=== PATIENT | female | born 1960 | race Caucasian/White ===

== ENCOUNTER 2018-12-16 02:11 | Emergency (ER) | payer OTHER ==
[2018-12-16 02:59] LABS: Absolute Lymphocytes (CBC) 2.5 K/uL (0.7-4.9); Basophils % 0.9 % (0-1.3); Hematocrit 38.3 % (36.0-45.0); Lymphocytes % 41.8 % (15.3-44.8); MPV 9.5 fL (7.6-11.3); RBC Red Blood Cell Count 4.49 M/uL (3.86-4.86)
[2018-12-16 03:00] LABS: Protime INR 1.09
[2018-12-16 03:18] LABS: ALT/SGPT 16 U/L (12-78); AST/SGOT 19 U/L (15-37); Albumin 3.8 g/dL (3.4-5.0); Alkaline Phosphatase 57 U/L (45-117); BUN Blood Urea Nitrogen 10 mg/dL (7-18); Bicarbonate 27 mmol/L (21-32); Bilirubin Direct 0.2 mg/dL (0-0.2); Bilirubin Total 0.7 mg/dL (0.2-1.0); Glucose Level 101 mg/dL (74-106); Magnesium 1.9 mg/dL (1.8-2.4); NT PRO-BNP 109 pg/mL (<125); Potassium 3.3 mmol/L (3.5-5.1); Protein, Total 7.3 g/dL (6.4-8.2); Sodium Level 141 mmol/L (136-145); Troponin (Emerg Dept Use Only) < 0.02 ng/mL (0.0-0.045)
--- NOTE | 2018-12-16 03:51 | ER ---
Nurse's Notes [facility] Name: Joanie Elliott Age: 58 yrs Sex: Female : 1960 Arrival Date: 12/16/2018 Time: 02:12 Bed 13 Private MD: Diagnosis: Palpitations;Essential (primary) hypertension Presentation: 12/16 02:22 Presenting complaint: EMS states: Reports pt stated she woke up with rapid heart rate, ea pt reported she thinks she may have had an anxiety report. Transition of care: patient was not received from another setting of care. Onset of symptoms was December 16, 2018. Risk Assessment: Do you want to hurt yourself or someone else? Patient reports no desire to harm self or others. Initial Sepsis Screen: Does the patient meet any 2 criteria? No. Patient's initial sepsis screen is negative. Does the patient have a suspected source of infection? No. Patient's initial sepsis screen is negative. Care prior to arrival: BS 96, BP 203/108. 02:22 Method Of Arrival: EMS: [facility] ea 02:22 Acuity: JEFERSON 3 ea Historical: - Allergies: 02:27 No Known Allergies; ea - Home Meds: 02:27 levothyroxine 100 mcg oral tab 1 tab once daily [Active]; hydrochlorothiazide 12.5 mg ea Oral cap 1 cap once daily [Active]; atenolol 25 mg Oral tab 1 tab once daily [Active]; - PMHx: 02:27 Anxiety; Hypothyroidism; Hypertension; ea - PSHx: 02:27 None; ea - Immunization history:: Adult Immunizations up to date. - Social history:: Smoking status: Patient/guardian denies using tobacco. - Ebola Screening: : No symptoms or risks identified at this time. Screenin:25 Abuse screen: Denies threats or abuse. Nutritional screening: No deficits noted. ea Tuberculosis screening: No symptoms or risk factors identified. Fall Risk None identified. Assessment: 02:22 General: Appears in no apparent distress. Behavior is calm, cooperative, appropriate ea for age. Pain: Denies pain. Neuro: Level of Consciousness is awake, alert, obeys commands, Oriented to person, place, time, situation. Cardiovascular: Patient's skin is warm and dry. Respiratory: Airway is patent Respiratory effort is even, unlabored, Respiratory pattern is regular, symmetrical. Derm: Skin is pink, warm \T\ dry. 03:58 Reassessment: Patient and/or family updated on plan of care and expected duration. Pain ea level reassessed. Patient is alert, oriented x 3, equal unlabored respirations, skin warm/dry/pink. 04:07 Reassessment: Patient and/or family updated on plan of care and expected duration. Pain ea level reassessed. Patient is alert, oriented x 3, equal unlabored respirations, skin warm/dry/pink. Discharge instruction given to patient, pt awaiting on family to call back for transportation home. Vital Signs: 02:24 BP 172 / 80; Pulse 62; Resp 18; Temp 97.8; Pulse Ox 100% ; Weight 67.13 kg; Height 5 ea ft. 6 in. (167.64 cm); Pain 10/10; 03:09 BP 142 / 75; Pulse 55; Resp 18; Pulse Ox 98% ; ea 04:08 BP 140 / 68; Pulse 56; Resp 18; Temp 97.9; Pulse Ox 98% on R/A; ea 02:24 Body Mass Index 23.89 (67.13 kg, 167.64 cm) ea ED Course: 02:12 Patient arrived in ED. ds1 02:17 Mehran Cancino MD is Attending Physician. gs 02:18 Fang Wynne, ZIA is Primary Nurse. ea 02:24 Triage completed. ea 02:27 Patient has correct armband on for positive identification. Bed in low position. Call ea light in reach. Side rails up X2. 02:27 Arm band placed on right wrist. Patient placed in an exam room, on a stretcher, on ea pulse oximetry. 02:32 XRAY Chest (1 view) In Process Unspecified. EDMS 02:55 Inserted saline lock: 20 gauge in left antecubital area, using aseptic technique. Blood rr5 collected. 03:58 No provider procedures requiring assistance completed. ea 04:07 IV discontinued, intact, bleeding controlled, No redness/swelling at site. Pressure ea dressing applied. Administered Medications: 03:57 Drug: Potassium Effervescent Tablet 50 mEq Route: PO; ea 03:58 Follow up: Response: No adverse reaction; Medication administered at discharge. ea Outcome: 03:51 Discharge ordered by . gs 04:07 Condition: stable ea 04:07 Discharge instructions given to patient, Instructed on discharge instructions, follow up and referral plans. medication usage, Demonstrated understanding of instructions, follow-up care, medications, Prescriptions given X 1. 04:13 Patient left the ED. ea Signatures: Dispatcher [employer] [facility] Kely Gilliland ds1 Fang Wynne RN RN Mehran De Leon MD MD Mendoza Pete RN RN rr5
--- NOTE | 2018-12-16 03:52 | EDPHYS ---
Physician Documentation [facility] Name: Joanie Elliott Age: 58 yrs Sex: Female : 1960 Arrival Date: 12/16/2018 Time: 02:12 Bed 13 Private MD: ED Physician Mehran Cancino HPI: 12/16 03:45 This 58 yrs old Female presents to ER via EMS with complaints of palpitations.gs 03:45 The patient presents with a history of heart racing. Context: The symptoms occur at gs rest. Onset: The symptoms/episode began/occurred this morning. Duration: The patient or guardian reports a single episode, that is now resolved. Modifying factors: The symptoms are aggravated by nothing. The symptoms are alleviated by nothing. Associated signs and symptoms: Pertinent positives: anxiety, Pertinent negatives: chest pain. Severity of symptoms: At their worst the symptoms were severe in the emergency department the symptoms have resolved. The patient has experienced similar episodes in the past, a few times. Historical: - Allergies: 02:27 No Known Allergies; ea - Home Meds: 02:27 levothyroxine 100 mcg oral tab 1 tab once daily [Active]; hydrochlorothiazide 12.5 mg ea Oral cap 1 cap once daily [Active]; atenolol 25 mg Oral tab 1 tab once daily [Active]; - PMHx: 02:27 Anxiety; Hypothyroidism; Hypertension; ea - PSHx: 02:27 None; ea - Immunization history:: Adult Immunizations up to date. - Social history:: Smoking status: Patient/guardian denies using tobacco. - Ebola Screening: : No symptoms or risks identified at this time. ROS: 03:45 All other systems are negative. gs Exam: 03:45 Constitutional: This is a well developed, well nourished patient who is awake, alert, gs and in no acute distress. Head/Face: Normocephalic, atraumatic. Eyes: Pupils equal round and reactive to light, extra-ocular motions intact. Lids and lashes normal. Conjunctiva and sclera are non-icteric and not injected. Cornea within normal limits. Periorbital areas with no swelling, redness, or edema. ENT: Nares patent. No nasal discharge, no septal abnormalities noted. Tympanic membranes are normal and external auditory canals are clear. Oropharynx with no redness, swelling, or masses, exudates, or evidence of obstruction, uvula midline. Mucous membranes moist. Neck: Trachea midline, no thyromegaly or masses palpated, and no cervical lymphadenopathy. Supple, full range of motion without nuchal rigidity, or vertebral point tenderness. No Meningismus. Chest/axilla: Normal chest wall appearance and motion. Nontender with no deformity. No lesions are appreciated. Cardiovascular: Regular rate and rhythm with a normal S1 and S2. No gallops, murmurs, or rubs. Normal PMI, no JVD. No pulse deficits. Respiratory: Lungs have equal breath sounds bilaterally, clear to auscultation and percussion. No rales, rhonchi or wheezes noted. No increased work of breathing, no retractions or nasal flaring. Abdomen/GI: Soft, non-tender, with normal bowel sounds. No distension or tympany. No guarding or rebound. No evidence of tenderness throughout. Back: No spinal tenderness. No costovertebral tenderness. Full range of motion. Skin: Warm, dry with normal turgor. Normal color with no rashes, no lesions, and no evidence of cellulitis. MS/ Extremity: Pulses equal, no cyanosis. Neurovascular intact. Full, normal range of motion. Neuro: Awake and alert, GCS 15, oriented to person, place, time, and situation. Cranial nerves II-XII grossly intact. Motor strength 5/5 in all extremities. Sensory grossly intact. Cerebellar exam normal. Normal gait. 03:45 Constitutional: The patient appears alert, awake. 03:45 ECG was reviewed by the Attending Physician. Vital Signs: 02:24 BP 172 / 80; Pulse 62; Resp 18; Temp 97.8; Pulse Ox 100% ; Weight 67.13 kg; Height 5 ea ft. 6 in. (167.64 cm); Pain 10/10; 03:09 BP 142 / 75; Pulse 55; Resp 18; Pulse Ox 98% ; ea 04:08 BP 140 / 68; Pulse 56; Resp 18; Temp 97.9; Pulse Ox 98% on R/A; ea 02:24 Body Mass Index 23.89 (67.13 kg, 167.64 cm) ea MDM: 02:30 Patient medically screened. gs 03:45 Differential diagnosis: arrythmia, dehydration, stress disorder. Differential gs diagnosis: failure to take bp meds. Data reviewed: vital signs, nurses notes. Data reviewed: lab test result(s), EKG, radiologic studies. Counseling: I had a detailed discussion with the patient and/or guardian regarding: the historical points, exam findings, and any diagnostic results supporting the discharge/admit diagnosis. Counseling: I had a detailed discussion with the patient and/or guardian regarding: the need for outpatient follow up. Response to treatment: the patient's symptoms have markedly improved after treatment, the patient's symptoms have resolved after treatment, the patient's condition has returned to base line, and as a result, I will discharge patient. 12/16 02:18 Order name: Basic Metabolic Panel; Complete Time: 03:51 12/16 02:18 Order name: CBC with Diff; Complete Time: 03: 12/16 02:18 Order name: LFT's; Complete Time: 03: 12/16 02:18 Order name: Magnesium; Complete Time: 03: 12/16 02:18 Order name: NT PRO-BNP; Complete Time: 03: 12/16 02:18 Order name: PT-INR; Complete Time: 03: 12/16 02:18 Order name: Troponin (emerg Dept Use Only); Complete Time: 03: 12/16 02:18 Order name: XRAY Chest (1 view) 12/16 02:18 Order name: EKG; Complete Time: 02:21 12/16 02:18 Order name: Cardiac monitoring; Complete Time: 03:05 12/16 02:18 Order name: EKG - Nurse/Tech; Complete Time: 03: 12/16 02:18 Order name: IV Saline Lock; Complete Time: : 12/16 02:18 Order name: Labs collected and sent; Complete Time: : 12/16 02:18 Order name: O2 Per Protocol; Complete Time: : 12/16 02:18 Order name: O2 Sat Monitoring; Complete Time: :52 gs EC:45 Rate is 54 beats/min. Rhythm is regular. MT interval is normal. QRS interval is normal. gs No Q waves. T waves are Normal. No ST changes noted. Clinical impression: Normal ECG. Interpreted by me. Administered Medications: 03:57 Drug: Potassium Effervescent Tablet 50 mEq Route: PO; ea 03:58 Follow up: Response: No adverse reaction; Medication administered at discharge. ea Disposition: 12/16/18 03:51 Discharged to Home. Impression: Palpitations, Essential (primary) hypertension. - Condition is Stable. - Discharge Instructions: Hypertension, Palpitations, Managing Your Hypertension. - Prescriptions for Hydroxyzine HCl 25 mg Oral Tablet - take 1 tablet by ORAL route every 12 hours As needed; 30 tablet. - Medication Reconciliation Form, Thank You Letter, Antibiotic Education, Prescription Opioid Use form. - Follow up: Private Physician; When: 2 - 3 days; Reason: Re-evaluation by your physician. Signatures: Dispatcher [employer] EDFang Zapata RN RN ea Starr, Gregory, MD MD gs Corrections: (The following items were deleted from the chart) 04:13 03:51 12/16/2018 03:51 Discharged to Home. Impression: Palpitations; Essential ea (primary) hypertension. Condition is Stable. Forms are Medication Reconciliation Form, Thank You Letter, Antibiotic Education, Prescription Opioid Use. Follow up: Private Physician; When: 2 - 3 days; Reason: Re-evaluation by your physician. gs
[2018-12-16] MEDS ORDERED: POTASSIUM 25 MEQ EFFERV TAB ONE (03:55)
[2018-12-16 04:44] VITALS: O2SAT 98
[2018-12-16 04:46] VITALS: BP 140/68; TEMP 97.9
--- NOTE | 2018-12-16 09:03 | EKG ---
Test Date: 2018-12-16 Test Time: 02:50:53 Bell Attendant: PAULO MEASUREMENT RESULTS: Intervals: Rate: 54 DE: 198 QRSD: 78 QT: 434 QTc: 411 [place]: P: 31 DE: 198 QRS: 74 T: 26 INTERPRETIVE STATEMENTS: Sinus bradycardia Otherwise normal ECG No previous ECG available for comparison Electronically Signed On 12-16-18 09:03:00 CDT by Keven Angeles
--- NOTE | 2018-12-16 10:41 | RAD REPORT ---
EXAM DESCRIPTION: RAD - Chest Single View - 12/16/2018 2:32 am CLINICAL HISTORY: Tachycardia, chest pain COMPARISON: None. TECHNIQUE: AP portable chest image was obtained [id number] hours . FINDINGS: Lungs are clear. Heart and vasculature are normal. No measurable pleural effusion and no p neumothorax. No acute bony abnormality seen. No acute aortic findings suspected. IMPRESSION: No acute cardiopulmonary process.
== END 2018-12-16 04:13 | disposition home or self-care (01) ==
LOC: ER 02:11
DX: I10 Essential (primary) hypertension (principal); F41.9 Anxiety disorder, unspecified; E03.9 Hypothyroidism, unspecified
CPT/HCPCS: 36415; 71045; 80048; 80076; 83735; 83880; 84484; 85025; 85610; 93005; 99284